=== PATIENT | male | born 1965 | race Caucasian/White ===

== ENCOUNTER → 2018-06-19 | Outpatient (CLI) | payer BC ==
--- NOTE | 2018-06-19 22:48 | CONS ---
CONSULTATION REASON FOR CONSULTATION: This is a 53-year-old male patient was referred to me for evaluation of sleep apnea. The patient has noted to snore loud and more recently he has been noted to have arousals, gasping for air. This has been noted by his . He has been also waking up a bit more tired and sleepy during the day. He is a CPA. He is able to function and complete his tasks without any major problems and he typically drinks 2 cups of coffee in the morning. No recent weight gain. No nocturnal heartburn. No nocturnal chest pain. No shortness of breath. No nocturia. No grinding of the teeth. No TMJ. No restlessness in the lower extremities. He goes to bed between 11:30 to midnight and wakes up 6:00 am in the morning. On weekends he wakes up between 7 to 8 am in the morning. He is averaging around 6-7 hours of sleep. He drinks beer and typically beer drinking makes his snoring louder. He breathes through his nose. No nasal congestion. Postnasal drainage. He is on lisinopril for blood pressure. He is known to have environmental allergies towards dust, molds and cats. He has bruxism and he wears a bite guard. PAST MEDICAL HISTORY: 1. Bruxism with grinding of the teeth, wearing a bite guard. 2. Hypertension. 3. Environmental allergies towards dust and cats. SURGICAL HISTORY: Includes hernia repair. DRUG ALLERGIES: The drug allergies are not known. HE IS ALLERGIC TO DUST MITES, MOLD, CATS AND CERTAIN TREES. MEDICATION: Include lisinopril 10 mg p.o. daily. SOCIAL HISTORY: Nonsmoker and drinks 2-3 beers a day. No history of IV drugs. FAMILY HISTORY: Parents, both have obstructive sleep apnea. Both mother and father. REVIEW OF SYSTEMS: 12-point review of system was done. Positive findings are mentioned above in history of present illness. No angina. No palpitations. No stroke. No focal neurological deficits. No seizures. No altered mentation. No anxiety. No depression. No headaches. No nausea or vomiting. No diarrhea. No heartburn. No dysuria, frequency or urgency. No active arthritis. No joint pains. No falls. No wounds or ulcerations. PHYSICAL EXAMINATION: BP is 149/87, pulse 92, respirations 16, temperature 97.6, saturation 98% on room air. Weight is 181, height is 6 feet 1 inch and BMI 23.6. GENERAL APPEARANCE: Calm, comfortable. None obese. Head is atraumatic, normocephalic. Neck is short. Mallampati class IV. There is no goiter or neck masses. There is slight overbite and evidence of grinding of the teeth. LUNGS: Clear to auscultation. HEART: Sounds regular rate and rhythm. Normal S1, S2. No S3, S4. No murmurs. ABDOMEN: Soft, nontender. No organomegaly. EXTREMITIES: No edema. No cyanosis or clubbing. Neurological is alert x3. There is no focal neurological deficits. PSYCHIATRIC: Negative for anxiety or depression. IMPRESSION: 1. There is a loud snoring in addition to choking/gasping for air occasionally throughout the night as witnessed by the . Rule out underlying obstructive sleep apnea. 2. Bruxism currently wearing a bite guard. 3. He has environmental allergies including dust mites, cats and molds. 4. Mild degree of fatigue and sleepiness, Gilbert score of 6. 5. Hypertension. PLAN: The patient has some features to suggest obstructive sleep apnea. Nevertheless, this does is not seeming to affect his quality of life in general. I would recommend sleep in a sidewise body position with the head of the bed elevated at all times. Avoid alcohol drinking around 3-4 hours prior to going to bed or prior to bedtime. Do a home sleep study to assess the presence and severity of obstructive sleep apnea and treat accordingly. May consider a oral appliance for mild cases. Severe cases may need CPAP therapy although my overall suspicion that the patient may have severe disease is quite low. We will follow. MMODL / IJN: [id number] /
== END | disposition home or self-care (01) ==
LOC: SLEEP 13:35
PROVIDERS: ATTEND Internal Medicine Critical Care Medicine
DX: R06.83 Snoring (principal); R53.83 Other fatigue; I10 Essential (primary) hypertension; Z91.09 Other allergy status, other than to drugs and biological substances; Z79.899 Other long term (current) drug therapy; Z98.890 Other specified postprocedural states
CPT/HCPCS: 99211

== ENCOUNTER 2018-12-02 09:14 | Observation (INO) | payer BC ==
[2018-12-02 09:20] VITALS: RESP 18
[2018-12-02] MEDS ORDERED: ASPIRIN 81 MG PO STA (09:40)
[2018-12-02 10:19] LABS: Basophils # (A) 0.1 k/uL (0-0.2); Basophils % (A) 0 %; Eosinophils # (A) 0.3 k/uL (0-0.7); Eosinophils % (A) 2 %; HGB 15.1 gm/dL (13.0-17.5); Lymphocytes % (A) 7 %; MCH 32.6 pg (25.0-35.0); MCHC 32.8 g/dL (31.0-37.0); MCV 99.4 fL (80.0-100.0); Mean Platelet Volume 6.8; Monocytes # (A) 0.7 k/uL (0-1.0); Monocytes % (A) 5 %; Neutrophils # (A) 11.3 k/uL (1.3-7.7); Neutrophils % (A) 84 %; Platelet Count 229 k/uL (150-450); RBC 4.63 m/uL (4.30-5.90); RDW 12.6 % (11.5-15.5); WBC 13.4 k/uL (3.8-10.6)
--- NOTE | 2018-12-02 10:24 | XR ---
EXAMINATION TYPE: XR chest 2V DATE OF EXAM: 12/02/2018 HISTORY: Chest Pain. REFERENCE: NONE. FINDINGS: The lungs are clear. Pleural space are clear. The heart is not enlarged. IMPRESSION: NO ACTIVE INTRATHORACIC DISEASE.
[2018-12-02 10:28] LABS: ALT 57 U/L (21-72); AST 66 U/L (17-59); Albumin 4.5 g/dL (3.5-5.0); Alkaline Phosphatase 78 U/L (38-126); Anion Gap 8 mmol/L; Blood Urea Nitrogen 8 mg/dL (9-20); Calcium 9.4 mg/dL (8.4-10.2); Carbon Dioxide 27 mmol/L (22-30); Chloride 102 mmol/L (98-107); Glucose 94 mg/dL (74-99); Magnesium 2.2 mg/dL (1.6-2.3); Potassium 3.9 mmol/L (3.5-5.1); Sodium 137 mmol/L (137-145); Total Bilirubin 0.6 mg/dL (0.2-1.3); Total Protein 7.4 g/dL (6.3-8.2)
[2018-12-02 10:29] LABS: INR 0.9 (<1.2); Partial Thromboplastin Time 22.4 sec (22.0-30.0); Prothrombin Time 9.5 sec (9.0-12.0)
--- NOTE | 2018-12-02 11:02 | ED ---
General Adult HPI - General Chief complaint: Chest Pain Stated complaint: chest tightness, left shoulder pain Time Seen by Provider: 12/02/18 09:30 Source: patient, RN notes reviewed Mode of arrival: ambulatory Limitations: no limitations - History of Present Illness Initial comments: 53-year-old male with a past medical history of hypertension, hyperlipidemia presents to the emergency department for a chief complaint of left shoulder pain and chest pressure. Patient states his left shoulder started to have a sharp pain and it around 6 AM. States he was trying to sleep so that it may be musculoskeletal in nature. States that it was really bothering him for about an hour and a half so he got up and sat on the chair. States that throughout this time he was having chest pressure as well. States this lasted for approximately an hour and a half as well. States that it then resolved when he decided to come to the emergency department. Patient states he has never had a pain like this before. Denies any shortness of breath. Denies any diaphoresis. Patient does admit a history of hypertension as well as a history of hypercholesterolemia. States he used to be on medicine for cholesterol but for the past 5 years has been diet controlled. Patient is a never smoker. Patient denies any family history of VA. Patient denies any cardiac history himself. Patient has no other complaints at this time including shortness of breath, abdominal pain, nausea or vomiting, headache, or visual changes. - Related Data Home Medications Medication Instructions Recorded Confirmed Aspirin EC [Ecotrin Low Dose] 81 mg PO DAILY 12/02/18 12/02/18 Cetirizine HCl [Zyrtec] 10 mg PO HS 12/02/18 12/02/18 Lisinopril [Zestril] 10 mg PO DAILY 12/02/18 12/02/18 Multivitamins, Thera [Multivitamin 1 tab PO DAILY 12/02/18 12/02/18 (formulary)] [place]-3 Fatty Acids/Fish Oil [Fish 1 cap PO HS 12/02/18 12/02/18 Oil 1,000 mg Softgel] Allergies Allergy/AdvReac Type Severity Reaction Status Date / Time No Known Allergies Allergy Verified 12/02/18 09:56 Review of Systems ROS Statement: Those systems with pertinent positive or pertinent negative responses have been documented in the HPI. ROS Other: All systems not noted in ROS Statement are negative. Past Medical History Past Medical History: Hypertension History of Any Multi-Drug Resistant Organisms: None Reported Past Surgical History: Hernia Repair Past Psychological History: No Psychological Hx Reported Smoking Status: Never smoker Past Alcohol Use History: Occasional Past Drug Use History: None Reported General Exam Limitations: no limitations General appearance: alert, in no apparent distress Head exam: Present: atraumatic, normocephalic, normal inspection Eye exam: Present: normal appearance, PERRL, EOMI. Absent: scleral icterus, conjunctival injection, periorbital swelling ENT exam: Present: normal exam, mucous membranes moist Neck exam: Present: normal inspection. Absent: tenderness, meningismus, lymphadenopathy Respiratory exam: Present: normal lung sounds bilaterally. Absent: respiratory distress, wheezes, rales, rhonchi, stridor Cardiovascular Exam: Present: regular rate, normal rhythm, normal heart sounds. Absent: systolic murmur, diastolic murmur, rubs, gallop, clicks Neurological exam: Present: alert, oriented X3, CN II-XII intact Psychiatric exam: Present: normal affect, normal mood Course Vital Signs 12/02/18 09:17 Temperature 98.2 F Pulse Rate 95 Respiratory 18 Rate Blood Pressure 189/97 O2 Sat by Pulse 98 Oximetry EKG Findings - EKG Comments: EKG Findings:: Normal sinus rhythm, ventricular rate 93, MI interval 148, QTC 462 Medical Decision Making - Medical Decision Making 53-year-old male with a past medical history of hypertension, hyperlipidemia presents to the emergency department for a chief complaint of left shoulder pain and chest pressure. States this started around 6 AM and then stopped approximately 2 hours later. No associated shortness of breath or diaphoresis. However with his chest pressure he decided to come to the emergency department. Patient does have a history of hypertension and hypercholesterolemia. Denies smoking history. Denies family history of VA or previous personal cardiac history. Exam is unremarkable patient does appear very anxious about this which is likely the cause of his hypertension. CBC did show white count of 13.4, likely reactive. CMP unremarkable. Troponin is negative. Chest x-ray shows no active intrathoracic disease. EKG does show possibly mild depression in V5 and V6, no significant elevations. Given patient's age he will be admitted for training troponins and cardiology consult. Patient does agree with this. - Lab Data Result diagrams: 12/02/18 10:05 12/02/18 10:05 Lab Results 12/02/18 12/02/18 12/02/18 Range/Units 10:05 10:05 10:05 WBC 13.4 H (3.8-10.6) k/uL RBC 4.63 (4.30-5.90) m/uL Hgb 15.1 (13.0-17.5) gm/dL Hct 46.0 (39.0-53.0) % MCV 99.4 (80.0-100.0) fL MCH 32.6 (25.0-35.0) pg MCHC 32.8 (31.0-37.0) g/dL RDW 12.6 (11.5-15.5) % Plt Count 229 (150-450) k/uL Neutrophils % 84 % Lymphocytes % 7 % Monocytes % 5 % Eosinophils % 2 % Basophils % 0 % Neutrophils # 11.3 H (1.3-7.7) k/uL Lymphocytes # 1.0 (1.0-4.8) k/uL Monocytes # 0.7 (0-1.0) k/uL Eosinophils # 0.3 (0-0.7) k/uL Basophils # 0.1 (0-0.2) k/uL PT 9.5 (9.0-12.0) sec INR 0.9 (<1.2) APTT 22.4 (22.0-30.0) sec Sodium 137 (137-145) mmol/L Potassium 3.9 (3.5-5.1) mmol/L Chloride 102 (98-107) mmol/L Carbon Dioxide 27 (22-30) mmol/L Anion Gap 8 mmol/L BUN 8 L (9-20) mg/dL Creatinine 0.70 (0.66-1.25) mg/dL Est GFR (CKD-EPI)AfAm >90 (>60 ml/min/1.73 sqM) Est GFR (CKD-EPI)NonAf >90 (>60 ml/min/1.73 sqM) Glucose 94 (74-99) mg/dL Calcium 9.4 (8.4-10.2) mg/dL Magnesium 2.2 (1.6-2.3) mg/dL Total Bilirubin 0.6 (0.2-1.3) mg/dL AST 66 H (17-59) U/L ALT 57 (21-72) U/L Alkaline Phosphatase 78 (38-126) U/L Troponin I (0.000-0.034) ng/mL Total Protein 7.4 (6.3-8.2) g/dL Albumin 4.5 (3.5-5.0) g/dL 12/02/18 Range/Units 10:05 WBC (3.8-10.6) k/uL RBC (4.30-5.90) m/uL Hgb (13.0-17.5) gm/dL Hct (39.0-53.0) % MCV (80.0-100.0) fL MCH (25.0-35.0) pg MCHC (31.0-37.0) g/dL RDW (11.5-15.5) % Plt Count (150-450) k/uL Neutrophils % % Lymphocytes % % Monocytes % % Eosinophils % % Basophils % % Neutrophils # (1.3-7.7) k/uL Lymphocytes # (1.0-4.8) k/uL Monocytes # (0-1.0) k/uL Eosinophils # (0-0.7) k/uL Basophils # (0-0.2) k/uL PT (9.0-12.0) sec INR (<1.2) APTT (22.0-30.0) sec Sodium (137-145) mmol/L Potassium (3.5-5.1) mmol/L Chloride (98-107) mmol/L Carbon Dioxide (22-30) mmol/L Anion Gap mmol/L BUN (9-20) mg/dL Creatinine (0.66-1.25) mg/dL Est GFR (CKD-EPI)AfAm (>60 ml/min/1.73 sqM) Est GFR (CKD-EPI)NonAf (>60 ml/min/1.73 sqM) Glucose (74-99) mg/dL Calcium (8.4-10.2) mg/dL Magnesium (1.6-2.3) mg/dL Total Bilirubin (0.2-1.3) mg/dL AST (17-59) U/L ALT (21-72) U/L Alkaline Phosphatase (38-126) U/L Troponin I <0.012 (0.000-0.034) ng/mL Total Protein (6.3-8.2) g/dL Albumin (3.5-5.0) g/dL Disposition Clinical Impression: Chest pressure Disposition: ADMITTED IP TO THIS HOSP Condition: Fair Is patient prescribed a controlled substance at d/c from ED?: No Time of Disposition: 11:35
[2018-12-02] MEDS ORDERED: NITROGLYCERIN SL TABS 0.4 MG TAB SUBLINGUAL PRN (11:25)
[2018-12-02 12:40] VITALS: BP 150/79; PULSE 82; TEMP 98.4
[2018-12-02] MEDS ORDERED: LISINOPRIL 10 MG TAB PO SCH (15:21)
[2018-12-02] MEDS ORDERED: ENOXAPARIN 40 MG/0.4 ML SYRINGE SQ SCH (15:30)
--- NOTE | 2018-12-02 18:50 | HP ---
HISTORY AND PHYSICAL DATE OF ADMISSION: 12/02/2018 DATE OF SERVICE: 12/02/2018 PRESENTING COMPLAINT: Chest pain. HISTORY OF PRESENTING COMPLAINT: A very pleasant 53-year-old patient who follows with Dr. Callejas. Chronic stable medical conditions include hypertension. The patient had hyperlipidemia but well controlled now taken off medications rather active. 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 Was not doing any heavy stuff, but still worked about 8-10 hours. 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 Woke up this morning with left shoulder hurting really could not get the pain off. Also felt some left anterior chest wall tightness. By the time he went back to bed and tried to shake it off, but really did get off. Did tell his . Did present to the hospital. By the time he got here, symptoms had gone. There was no shortness of breath. No dizziness. No lightheadedness. No perspiration. No tiredness. No prior cardiac history. Patient is rather active. Initial troponin was negative. REVIEW OF SYSTEMS: CONSTITUTIONAL: None. HEENT: None. RESPIRATORY: None. CARDIOVASCULAR: As above. GASTROINTESTINAL: None. GENITOURINARY: None. MUSCULOSKELETAL: As above. DERMATOLOGICAL, HEMATOLOGIC, LYMPHATIC: none. PSYCHIATRY none. NEUROLOGICAL none. PAST MEDICAL HISTORY: Hypertension, hyperlipidemia, now taken off medications. PAST SURGICAL HISTORY: Hernia repair. SOCIAL HISTORY: Does not smoke. Alcohol occasionally. . The patient works for [employer] as a [employer]. HOME MEDICATIONS: 1. Fish oil 1000 mg 1 capsule p.o. q.h.s. 2. Multivitamin 1 tablet p.o. daily. 3. Zestril 10 mg p.o. daily. 4. Zyrtec 10 mg q.h.s. 5. Aspirin 81 mg p.o. daily. ALLERGIES: None. PHYSICAL EXAMINATION: VITAL SIGNS: Temperature 98.2, pulse 95, respiratory rate 18, blood pressure 150/79. Pulse ox 97% on room air. GENERAL APPEARANCE: Average built, sitting up, not in distress. EYES: Pupils are equal. Conjunctivae normal. HEENT external appearance of nose and ears normal. Oral cavity normal. NECK: JVD not raised. Mass not palpable. RESPIRATORY: Effort normal. LUNGS are clear. CARDIOVASCULAR: First and second sounds normal. No edema. ABDOMEN: Soft, nontender. Liver and spleen not palpable. LYMPHATICS: No lymph nodes palpable in the neck and axilla. PSYCHIATRY: Alert and oriented times three. Mood and affect normal. NEUROLOGICAL: Pupils equal. Cranial nerves grossly intact. Power and sensation grossly intact. MUSCULOSKELETAL: No reproducible pain on the left shoulder. INVESTIGATIONS: White count 13.4, hemoglobin 15.1, potassium 3.9, BUN 8, creatinine 0.70, troponin less than 0.012. EKG tracing personally reviewed by me shows ST-segment depression in the anterior leads. Chest x-ray film personally reviewed by me shows no obvious infiltrate. ASSESSMENT: 1. Unstable angina in a patient who has ST-segment changes in the anterior leads anterior leads. Risk factors being prior history of hyperlipidemia, hypertension. Initial cardiac enzyme is negative. We will keep the patient n.p.o. in case Cardiology decides to proceed with cardiac catheterization. At the least patient will need a nuclear stress test. 2. Essential hypertension. PLAN: Patient is currently symptom-free. Continue on aspirin and Zestril. We will be made n.p.o. after midnight except for medications. Care was discussed with the patient. Copy to Dr. Callejas. MMZARIAL / VINCEN: [id number] /
[2018-12-02] MEDS ORDERED: MELATONIN 1 MG TAB PO SCH (21:00)
--- NOTE | 2018-12-02 22:47 | DS ---
DISCHARGE SUMMARY DATE OF ADMISSION: 12/02/2018; left against medical advice 12/02/2018. FINAL DIAGNOSES: 1. Possible unstable angina. 2. Essential hypertension. HOSPITAL COURSE: This patient presented with chest and shoulder pain and had ST-segment changes with depression in his anterior leads. Nurse called me earlier in the evening, patient had decided to leave AMA as he was feeling claustrophobic. I did try from my home later to contact the patient's home and cell phone and got voicemail. On exam, lungs are clear. Cardiovascular, 1st and 2nd heart sounds normal. DISPOSITION: Left AMA. MMODL / IJN: [id number] /
[2018-12-03] MEDS ORDERED: ASPIRIN 325 MG TAB PO SCH (09:00)
[2018-12-03] MEDS ORDERED: LISINOPRIL 10 MG TAB PO SCH (09:00)
== END 2018-12-02 16:52 | disposition left against medical advice (07) ==
LOC: EC 09:14 → 1SOBS 11:25
PROVIDERS: ADMIT Hospitalist; ATTEND Hospitalist
DX: R07.89 Other chest pain (principal); M25.512 Pain in left shoulder; Z53.21 Procedure and treatment not carried out due to patient leaving prior to being seen by health care provider; I10 Essential (primary) hypertension; F40.240 Claustrophobia; R94.31 Abnormal electrocardiogram [ECG] [EKG]; E78.5 Hyperlipidemia, unspecified; Z79.82 Long term (current) use of aspirin; Z79.899 Other long term (current) drug therapy
CPT/HCPCS: 99285; 36415; 94760; 93005; 80053; 83735; 84484; 85025; 85610; 85730; 71046; G0378

== ENCOUNTER → 2018-12-25 | Outpatient (CLI) | payer BC ==
--- NOTE | 2018-12-25 12:19 | NM ---
EXAMINATION TYPE: NM stress cardiolite complete DATE OF EXAM: 12/25/2018 COMPARISON: NONE HISTORY: Abnormal EKG TECHNIQUE: After the intravenous administration of 9.9 mCi Tc 99m Sestamibi - Rest images obtained 5 5 minutes post injection. The patient exercised using a CHRISTEL protocol and 1 minute prior to peak e xercise was injected with 25.7 mCi Tc 99m Sestamibi - Stress images obtained 5 minutes post injection . FINDINGS: Targeted heart rate was achieved during performance of the study. Review of stress and rest SPECT andrew ges demonstrates no distinct perfusion abnormality. Gated analysis shows normal wall motion with an estimated left ventricular ejection fraction of 75 %. IMPRESSION: No scintigraphic evidence for reversible ischemia. Consider echocardiographic correlation for elevate d ejection fraction
--- NOTE | 2018-12-25 20:05 | P.STRESS ---
- Stress Test Note Stress Test Results/Findings: Exam Performed: NM stress cardiolite complete Exam Date: 12/25/18 Reason for Exam: ABN EKG Height: 6 ft 2 in Weight: 81.647 kg Protocol: CHRISTEL Stage: 4 Duration of Exercise: 10:30 Resting Heart Rate: 70 Resting Blood Pressure: 133/76 Maximum Achieved Heart Rate: 149 Maximum Achieved Blood Pressure: 162/74 85% PMHR: 141 100% PMHR: 166 METS: 12.1 Technologist Comment: Stress Test Results/Findings: Baseline heart is 70 beats a minute, Baseline blood pressure 133/76 mmHg Baseline to ECG shows sinus rhythm with 0.[address] depression in inferior leads and the lateral precordial leads Patient exercised on a Christel protocol for 9-1/2 minutes achieving a peak heart rate of 149 beats a minute and normal blood pressure response There was no ECG evidence for ischemia, [address] depression was noted during peak exercise However recovery [address] depression horizontal was noted No arrhythmias noted Impression Mildly abnormal stress test ECG criteria especially during recovery with a [address] depression New proportional be reported separately Patient remained asymptomatic
== END | disposition home or self-care (01) ==
LOC: RADNMMAIN 07:58
PROVIDERS: ATTEND Family Medicine
DX: R94.31 Abnormal electrocardiogram [ECG] [EKG] (principal)
CPT/HCPCS: 93017; 78452; A9500